=== PATIENT | female | born 1990 | race African-American/Black ===

== ENCOUNTER 2018-09-18 00:13 | Emergency (ER) | payer OTHER | END 2018-09-18 01:09 | disposition home or self-care (01) | LOC: ERS 00:13 | DX: F43.0 Acute stress reaction (principal); F32.9 Major depressive disorder, single episode, unspecified | CPT/HCPCS: 93005 ==

== ENCOUNTER 2018-11-29 14:03 | Observation (INO) | payer OTHER, SELFPAY ==
[2018-11-29 14:20] LABS: #Eosinphils 0.1 thou/uL (0.0-0.7); #Lymphocytes 2.1 thou/uL (1.20-3.40); #Monocytes 0.2 thou/uL (0.11-0.59); #Neutrophils 3.4 thou/uL (1.40-6.50); %Basophils 0.7 % (0.0-1.0); %Eosinophils 1.2 % (0.0-10.0); %Lymphocytes 35.4 % (21.0-51.0); %Monocytes 3.5 % (0.0-10.0); %Neutrophils 59.2 % (42.0-75.0); Hemoglobin 14.3 g/dL (12.0-16.0); Mean Corpuscular HGB CONC 32.2 g/dL (32.0-36.0); Mean Corpuscular Hemoglobin 29.5 pg (27.0-31.0); Mean Corpuscular Volume 91.6 fL (78.0-98.0); Mean Platelet Volume 8.5 fL (7.4-10.4); Platelet Count 180 thou/uL (130-400); RBC Distribution Width 12.6 % (11.5-14.5); Red Blood Cell (RBC) Count 4.86 mill/uL (4.20-5.40); White Blood Cell (WBC) Count 5.8 thou/uL (4.8-10.8)
[2018-11-29] MEDS ORDERED: Naloxone HCl 2 mg/2 ml Syringe ONE (14:30)
[2018-11-29] MEDS ORDERED: Ondansetron PF 4 MG/2 ML Vial ONE (14:30)
[2018-11-29 14:46] LABS: ALT (SGPT) 17 U/L (8-55); AST (SGOT) 16 U/L (5-34); Albumin 4.2 g/dL (3.5-5.0); Alkaline Phosphatase 81 U/L (40-150); Anion Gap 15 mmol/L (10-20); BUN (Urea Nitrogen) 10 mg/dL (7.0-18.7); Calc. Creatinine Clearance 0 mL/min (70-130); Calcium 9.4 mg/dL (7.8-10.44); Carbon Dioxide 19 mmol/L (22-29); Chloride 106 mmol/L (98-107); Estimated GFR-MDRD 82; Glucose 91 mg/dL (70-105); Potassium 3.9 mmol/L (3.5-5.1); Protein, Total 7.2 g/dL (6.0-8.3); Sodium 136 mmol/L (136-145)
[2018-11-29 15:12] LABS: Acetaminophen Less than 6.0 mcg/mL (10.0-30.0); Alcohol Less than 10 mg/dL (Less than 10); Salicylate Less than 8.0 mg/dL (15.0-30.0)
--- NOTE | 2018-11-29 16:03 | CT ---
CT BRAIN WITHOUT CONTRAST: HISTORY: Altered mental status FINDINGS: No evidence of acute infarct, hemorrhage, midline shift or abnormal extra-axial fluid collections is seen. The ventricular size is appropriate and the basilar cisterns are patent. The bony calvarium is intact. The visualized paranasal sinuses and mastoid air cells are well aerated. IMPRESSION: No CT evidence of acute intracranial process.
[2018-11-29 16:24] LABS: Bilirubin Negative (Negative); Blood, Urine Negative (Negative); Clarity CLOUDY (Clear); Glucose, Urine (Dipstick) Negative (Negative); Leukocyte Trace (Negative); Nitrite Negative (Negative); Protein, Urine (Dipstick) Negative (Neg-Trace); Specific Gravity, Urine 1.028 (1.002-1.036)
[2018-11-29 16:29] LABS: Bacteria/HPF None Seen HPF (None Seen); Hyaline Casts/LPF 4-6 HYALINE CAST LPF (0-3 Hyaline); Pathc Cast-AUWi Flag 2.04 (0-2.49); RBC/HPF 0-3 HPF (0-3)
[2018-11-29 16:34] LABS: Amphetamine Not Detected (NotDetected); Barbiturates Screen Not Detected (NotDetected); Benzodiazepine Screen Not Detected (NotDetected); Cocaine Metabolite Screen Not Detected (NotDetected); Medtox Control Line Valid? VALID (VALID); Medtox Reader # READER 1; Methadone Not Detected (NotDetected); Methamphetamine Not Detected (NotDetected); Opiate Screen Not Detected (NotDetected); Oxycodone Screen Not Detected (NotDetected); Phencyclidine (PCP) Not Detected (NotDetected); THC/Cannabinoid Screen Detected (NotDetected); Tricyclic Screen Not Detected (NotDetected)
[2018-11-29 18:50] LABS: Pregnancy Test - Urine (BHCG) Negative (Negative)
[2018-11-29 18:51] LABS: Pregu Control Background? CLEAR/WHITE (CLR/WHITE); Pregu Control Bar Appear? YES (CONTROL BAR); Specific Gravity 1.028 (1.002-1.036)
[2018-11-29] MEDS ORDERED: Ondansetron ODT 4 MG TAB SL PRN (19:33)
[2018-11-29] MEDS ORDERED: Ondansetron PF 4 MG/2 ML Vial IVP PRN (19:33)
[2018-11-29] MEDS ORDERED: Acetaminophen 325 MG TAB PO PRN (21:24)
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
[2018-11-29] MEDS ORDERED: Nicotine 14 MG PATCH TD SCH (22:00)
[2018-11-29 22:04] VITALS: BMI 29.2
[2018-11-29] MEDS ORDERED: Melatonin 3 MG TAB PO PRN (22:20)
--- NOTE | 2018-11-30 09:34 | PDOC.FM ---
- Subjective Subjective: Patient doing well this AM. No significant overnight events. Patient states that she recalls telling boss she wasn't feeling well and texting cousin that she was feeling bad and wanted to go to [facility] ED. Per patient, she somehow ended up at home and was found by family after not responding to calls and texts. The next thing she remembers is being in ED. She states there has been no recent stressors outside of normal. She states she does smoke marijuana but last time she smoked was nearly a week ago and the marijuana was from same supplier and is not concerned that it was laced with anything. Patient states this has not happened previously. She feels a little weak today, but otherwise feels back to baseline. - Objective MAR Reviewed: Yes Vital Signs & Weight: Vital Signs (12 hours) Temp Pulse Resp BP Pulse Ox 11/30/18 07:34 97.4 F L 60 16 115/56 L 99 11/30/18 04:00 97.4 F L 65 16 108/51 L 100 11/30/18 00:00 97.8 F 67 16 113/55 L 99 Weight Weight 98.021 kg I&O: 11/29/18 11/30/18 12/01/18 06:59 06:59 06:59 Intake Total 500 Balance 500 Result Diagrams: 11/29/18 14:14 11/29/18 14:14 EKG Reviewed by me: Yes Radiology Reviewed by me: Yes Phys Exam - Physical Examination Constitutional: NAD HEENT: moist MMs Respiratory: no wheezing, clear to auscultation bilateral Cardiovascular: RRR, no significant murmur Gastrointestinal: soft, no distention Musculoskeletal: no edema, pulses present Neurological: non-focal, moves all 4 limbs Psychiatric: normal affect, A&O x 3 Skin: no rash, cap refill <2 seconds Dx/Plan (1) Transient global amnesia Code(s): G45.4 - TRANSIENT GLOBAL AMNESIA Status: Acute (2) Marijuana abuse Code(s): F12.10 - CANNABIS ABUSE, UNCOMPLICATED Status: Chronic - Plan Plan: Transient global amnesia - CT brain negative - resolved after narcan, UDS + marijuana (patient states last time she smoked was 1 week ago and was from same supplier as normal) - Labs all WNL - Ddx includes medication or drug use, psych etiology, conversion disorder, infection, toxins - No S/S of infection. Possibly related to drugs undetected on UDS, although patient denies. Patient does have history of depression but states it has been well controlled without medications or recent counseling. - Suspect etiology of transient global amnesia. Depression - no SI/HI, not currently treated - recommend outpatient psychiatric evaluation and depression treatment - Last went to counseling 3 months ago - Not currently on medication Tobacco abuse - nicotine patch, encourage cessation Marijuana abuse Dispo: Stable. Anticipate d/c home today. Addendum - Attending - Attending Attestation Date/Time: 11/30/18 [id number] I personally evaluated the patient and discussed the management with Dr. Gannon I agree with the History, Examination, Assessment and Plan documented above with any addition or exceptions noted below- Patient without complaints. No further episodes of AMS. Afebrile VSS. A/P: 1) Transient AMS- workup negative and now back to baseline. Plan to d/c home today.
[2018-11-30 11:58] VITALS: BP 116/57; TEMP 98.5
--- NOTE | 2018-11-30 21:29 | DIS ---
DATE OF ADMISSION: 11/29/2018 DATE OF DISCHARGE: 11/30/2018 ADMITTING ATTENDING: Jaron Chambers MD DISCHARGE ATTENDING: Shara Puentes MD RESIDENT: Eva Gannon DO PROCEDURE: Brain CT without contrast showed no evidence of acute intracranial process. PRIMARY DIAGNOSES: 1. Transient global amnesia. 2. History of marijuana abuse. 3. Depression. 4. Tobacco abuse. DISCHARGE MEDICATIONS: None. HISTORY OF PRESENT ILLNESS/HOSPITAL COURSE: This is a 28-year-old female with past medical history of depression and marijuana use, who presented to the emergency department via EMS for altered mental status. The patient was reportedly at work when she started to feel a little warm and dizzy around 10. She told her boss and then texted her cousin. At that point, the patient states that she ended up at home without knowing how she got there. She says that she had texted her cousin that she was going to go to [facility] at that time. Family cannot get hold of the patient and they looked at her house at which time they found her in the bed. The patient was reportedly responsive but appeared confused. She was taken to the emergency department at which time she was given Narcan and reportedly "came to." The patient states that she has been back to baseline and does remember being in the emergency department. She does have a history of marijuana use, but she says she last used one week ago. She states that she got the marijuana from the same supplier and is not concerned that has placed with anything else. The patient reports that she is feeling a little bit tired, but otherwise at baseline. She has never had an event like this before. The patient remained stable during the course of her hospital stay. The patient does have a history of depression, although she says that her depression is under control. She is not currently on any medications and last saw [facility] about 3 months ago. She does not have any plans currently to follow back up with [facility] for counseling, although I did recommend that she do so just to ensure that everything is under control. The patient denies any suicidal or homicidal ideations or intent. Aside from feeling just mildly weak, the patient states that she feels better. She has no evidence of any focal deficits to suggest any intracranial pathology. CT of the brain again was negative. Her labs were all within normal limits. I suspect that this is secondary to transient global amnesia versus drug use. Her event seems resolved at this time. DISPOSITION: Stable. DISCHARGE INSTRUCTIONS: 1. Location: Home. 2. Activity: No restrictions. 3. Diet: Regular. 4. Followup: The patient is to follow up with [facility] within 7 to 14 days of discharge from the hospital. This was discussed with the patient. She is agreeable with plan. Job ID: [id number]
== END 2018-11-30 11:57 | disposition home or self-care (01) ==
LOC: ERS 14:03 → 2SE 19:22
PROVIDERS: ADMIT Family Medicine; ATTEND Family Medicine
DX: G45.4 Transient global amnesia (principal); F32.9 Major depressive disorder, single episode, unspecified; F17.290 Nicotine dependence, other tobacco product, uncomplicated; Z86.59 Personal history of other mental and behavioral disorders
CPT/HCPCS: 36415; 36416; 70450; 80053; 80306; 80307; 81003; 81015; 81025; 82140; 84443; 85025; 90471; 90732; 93005; 96374; 96375; G0009; G0378; J2310; J2405